=== PATIENT | female | born 2000 | race Caucasian/White ===

== ENCOUNTER 2020-11-24 18:05 | Emergency (ER) | payer OTHER, SELFPAY ==
--- NOTE | 2020-11-24 18:22 | ED.DIZZY ---
HPI - Dizziness General Chief Complaint: Syncope Stated Complaint: PASSING OUT Time Seen by Provider: 11/24/20 18:23 Source: patient and RN notes reviewed Mode of arrival: ambulatory Limitations: no limitations History of Present Illness HPI Narrative: 19-year-old female presents to the [facility] with near syncopal episodes 1 yesterday while she was at a sorority gathering. Again today also was at a large sorority gathering. Patient states that she was standing wearing heels, in a very hot room. Newborn everything go white and ringing in her ears. Did not completely lose consciousness. Never fell, did not hit head. Related Data Home Medications Medication Instructions Recorded Confirmed norethindrone-e.estradiol-iron [Lo tablet 11/24/20 Loestrin Fe] Allergies Allergy/AdvReac Type Severity Reaction Status Date / Time PCN Allergy Mild Other Uncoded 11/24/20 18:31 Review of Systems Review of Systems: All systems reviewed & are unremarkable except as noted in HPI and below Constitutional: Constitutional: Reports no additional constitutional complaints, Denies chills and Denies fever(s) Eyes: Eyes: Reports as per HPI, Reports change in vision (Saw white ) and Denies photophobia ENT: Reports system reviewed and no additional complaints, except as documented, Denies dysphagia, Denies vertigo, Denies dizziness, Denies nasal congestion and Denies sore throat Cardiovascular: Cardiovascular: Reports no additional cardiovascular complaints and Denies chest pain Respiratory: Respiratory: Reports no additional respiratory complaints, Denies cough, Denies dyspnea and Denies wheezing Gastrointestinal: Gastrointestinal: Reports no additional gastrointestinal complaints, Denies abdominal pain, Denies nausea and Denies vomiting Genitourinary: Genitourinary: Reports no additional female genitourinary complaints Musculoskeletal: Musculoskeletal: Reports no additional musculoskeletal complaints Integumentary/Breasts: Skin/Breast: Reports system reviewed and no additional complaints, except as docu Neurologic: Reports as per HPI, Denies confusion, Denies dizziness, Reports syncope (Near), Denies headache(s), Denies focal weakness, Denies numbness and Denies weakness Psychiatric: Psychiatric: Reports no additional psychiatric complaints Allergic/Immunologic: Allergic/Immunologic: Reports no additional allergic/immunologic complaints PMFSH Past Medical History Medical History (Updated 11/24/20 @ 19:34 by Myranda Sherwood) No significant medical problems Surgical History Surgical History (Updated 11/24/20 @ 19:34 by Myranda Sherwood) No significant past surgical history Comments At the time of my signature, I reviewed and agree with the nursing past medical, surgical, social, and family history. There is no relevant family history pertinent to the patient complaint. Exam Const: General: healthy appearing, no acute distress and alert; No diaphoretic Nutritional Appearance: well nourished Orientation/consciousness: patient oriented x3 Limitations: no limitations HENMT: Head: normal to inspection Ears: TM's normal bilaterally, EAC's normal and external ear abnormal Eyes: Alignment and Position: alignment normal Eyelids: eyelids normal Conjunctivae: conjunctivae normal Pupils: Equal, round and reactive pupils present EOM: EOMs intact bilaterally Direct Ophthalmoscopy: no photophobia Neck: Neck: normal visual inspection, no lymphadenopathy and no meningeal signs Chest: Chest palpation & inspection: normal inspection of the chest Resp: Effort & Inspection: normal respiratory effort and no use of accessory muscles Auscultation: clear to auscultation bilaterally, no crackles, no rales, no rhonchi and no wheezes Cardio: Rate: regular rate Rhythm: regular rhythm : General: Yes no CVA tenderness Back/Spine/Pelvis: Back: no CVA tenderness Skin: General skin exam: normal color Rashes: no rashes Wounds: no wo
[2020-11-24 18:29] VITALS: BP 131/90; PULSE 103; RESP 12; TEMP 37; O2SAT 100
[2020-11-24 18:43] VITALS: BP 105/71; PULSE 78
[2020-11-24 18:44] VITALS: BP 128/80; PULSE 86
[2020-11-24 18:45] VITALS: BP 121/75; PULSE 95
--- NOTE | 2020-11-24 18:48 | ECG_ITS ---
Measurements Intervals [place] Rate: 80 P: 73 AL: 156 QRS: 70 QRSD: 86 T: 29 QT: 340 QTc: 394 Interpretive Statements SINUS RHYTHM INCOMPLETE RIGHT BUNDLE BRANCH BLOCK BORDERLINE ECG Electronically Signed On 11-25-2020 8:17:26 CDT by Junito Horton D.O.
== END 2020-11-24 19:10 | disposition home or self-care (01) ==
PROVIDERS: Emergency Provider Nurse Practitioner; PCP Physician Assistant
DX: R55 Syncope and collapse (principal); R42 Dizziness and giddiness; Z86.16 Personal history of COVID-19
CPT/HCPCS: 93005; 99213; G0463